=== PATIENT | female | born 2005 | race Caucasian/White ===

== ENCOUNTER 2024-10-15 10:12 | Emergency (ER) | payer MEDICAID ==
[~2024-10-15] VITALS: Ht 160 cm; Wt 50.9 kg
[2024-10-15 10:13] VITALS: TEMP 98.8
[2024-10-15 10:34] LABS: STREP A SCREEN NEGATIVE (Neg)
[2024-10-15] MEDS ORDERED: dexamethasone sod phosphate 10mg/ml inj PO STA (10:46)
[2024-10-15] MEDS: dexamethasone 4mg tablet PO STA (10:53)
[2024-10-15] MEDS: DEXAMETHASONE 6 MG TABLET PO STA (10:53)
[2024-10-15 10:57] VITALS: BP 116/94; PULSE 108; RESP 17; O2SAT 99
[2024-10-15] MEDS ORDERED: AMOX500C2 PO (11:02)
== END 2024-10-15 11:13 | disposition home or self-care (01) ==
LOC: ER 10:13
DX: J04.0 Acute laryngitis (principal); J02.9 Acute pharyngitis, unspecified; H92.02 Otalgia, left ear
CPT/HCPCS: 87081; 87880; 99283; J8540